=== PATIENT | female | born 2005 | race Caucasian/White ===

== ENCOUNTER 2025-01-15 19:03 | Emergency (ER) | payer OTHER, SELFPAY ==
[2025-01-15 19:05] VITALS: BP 114/63; PULSE 107; RESP 18; TEMP 36.4; O2SAT 98; BMI 23.3
--- NOTE | 2025-01-15 19:14 | EDS_ITS ---
HPI History of Present Illness Chief Complaint: Other, Pain/Inj Narrative Narrative: 19-year-old female was playing rugby and tackled another player and hit her nose on the back of their head. She states her nose started bleeding briefly but has stopped. She had no loss of consciousness. Denies headache, visual changes, nausea or vomiting. She is not on blood thinners. PFSH PFS Medical History no medical history Home Medications ?Medication ?Instructions ?Recorded ?Last Taken ?Type NK 01/15/25 Unknown History Allergy/AdvReac Type Severity Reaction Status Date / Time No Known Allergies Allergy Verified 01/15/25 19:08 Social History Smoking Status: Never smoker ROS ROS ED ROS Narrative Eyes: Negative for visual change. GI: Negative for nausea, vomiting. Neuro: Negative for headache/ EXAM Physical Exam Narrative Exam Narrative: CONST: Patient sitting in no acute distress. EYES: Normal inspection. PERRL, EOMI. ENT: Minor swelling and tenderness over the bridge of the nose without deformity or crepitus. Blood in both nares without active bleeding. Normal posterior oropharynx. No raccoon eyes or Ritter sign, no nasal septal hematoma, no hemotympanum, no CSF otorrhea or rhinorrhea. NECK: Normal inspection. RESP: No respiratory distress, CTAB. CVS: Regular rate and rhythm, no murmur, no gallop. SKIN: Color normal, no rash, warm, dry, intact. EXTREMITIES: Normal appearance, no pedal edema. NEURO: Alert and answering questions appropriately. PSYCH: Normal affect. Const Vital Signs: 01/15/25 19:05 01/15/25 19:12 01/15/25 19:53 Temperature 97.6 F L 97.6 F L Temperature Source Temporal Pulse Rate 107 H 107 H Respiratory Rate 18 18 Respiratory Effort Normal Respiratory Pattern Normal Blood Pressure 114/63 114/63 Blood Pressure Mean 80 80 Pulse Ox 98 98 Oxygen Delivery Method Room Air MDM MDM MDM Narrative Medical decision making narrative: 19-year-old female injured her nose while playing rugby instructed in the back of another player's head. No LOC. She had a brief bilateral nosebleed which has resolved. She is awake and alert. GCS 15. Stable vital signs. She has very minor swelling of the nose and tenderness of the bridge without deformity or crepitus. There is dried blood in both nares but no active bleeding. No nasal septal hematoma. She has no other signs of head injury or basilar skull fracture and has a normal neurological exam. According to [place] CT head rules she does not require CT imaging. Nasal bone x-rays were obtained and are negative. On ED attending review there is concern there may be a nondisplaced fracture. 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 She was discharged in stable condition. Radiography Diagnostic Testing: Clinical Impression(s) from Imaging Studies Nasal Bones X-Ray 01/15/25 19:35 IMPRESSION: NO FACIAL BONE FRACTURE IDENTIFIED. Reading [facility] Discharge Plan Triage Chief Complaint: Other, Pain/Inj ED Midlevel Provider: Blanka Camp ED Provider: Ric Mims Dx/Rx/DC Orders Clinical Impression: Contusion of nose, Injury while playing rugby league Instructions: ED Nose Fracture, with X-Ray Prescriptions: No Action NK Primary Care Provider: Care Physician,No Primary Referrals: Arnulfo Jung MD [Med Staff - Courtesy Staff] - NOT,DEFINED [Non-Staff] - Activity Restrictions/Additional Instructions: Ice, take Tylenol or ibuprofen as needed. If you you have issues with your nose you can follow-up with ENT. Print Language: Lithuanian Disposition Disposition: Home, Self Care Discharge Date/Time: 01/15/25 19:57
[2025-01-15] MEDS: Ibuprofen 200 MG Tablet 400 MG PO (19:16)
--- NOTE | 2025-01-15 19:35 | RAD_ITS ---
PROCEDURE: NASAL BONES MIN 3 VIEWS 01/15/2025 REASON FOR EXAM: NASAL PAIN TECHNIQUE: 4 view(s) of the facial bones COMPARISON: None FINDINGS: Bones: No acute fracture. Sinuses: Unremarkable. Additional findings: RAD/Nasal Bones min 3 Views IMPRESSION: NO FACIAL BONE FRACTURE IDENTIFIED. Reading Location: [facility]
[2025-01-15 19:53] VITALS: BP 114/63; PULSE 107; RESP 18; TEMP 36.4; O2SAT 98
== END 2025-01-15 19:57 | disposition home or self-care (01) ==
PROVIDERS: Emergency Provider Emergency Medicine; Visit Provider Emergency Medicine
DX: S00.33XA Contusion of nose, initial encounter (principal); W03.XXXA Other fall on same level due to collision with another person, initial encounter; Y93.63 Activity, rugby
CPT/HCPCS: 70160; 99282